=== PATIENT | female | born 1955 | race Caucasian/White ===

== ENCOUNTER → 2017-01-03 | Outpatient (CLI) | payer OTHER ==
--- NOTE | 2017-01-03 12:07 | DI ---
HISTORY: Left foot pain. PREVIOUS EXAM: None available. TECHNIQUE: Three views of left foot are obtained. FINDINGS: Images demonstrate anatomic alignment without fractures. The surrounding soft tissues are unremarkable. There is some enthesopathy noted at the insertion of the Achilles tendon and the planta r fascia. IMPRESSION: 1. No fractures.
== END ==
LOC: RAD 10:34
DX: M79.672 Pain in left foot (principal)
CPT/HCPCS: 73630